=== PATIENT | female | born 1990 ===

== ENCOUNTER 2018-05-20 10:18 | Emergency (ER) | payer MEDICAID, OTHER ==
[2018-05-20 10:20] VITALS: RESP 18; TEMP 98.8; BMI 32.2
--- NOTE | 2018-05-20 13:52 | ED PDOC ---
HPI: Back Time Seen by Provider: 05/20/18 12:08 Chief Complaint (Nursing): Back Pain Chief Complaint (Provider): Lower back pain History Per: Patient History/Exam Limitations: no limitations Onset/Duration Of Symptoms: Hrs Current Symptoms Are (Timing): Still Present Quality Of Discomfort: "Pain" Previous Symptoms: Back Pain Associated Symptoms: None Exacerbating Factor(s): Turning, Movement Additional History Per: Patient Additional Complaint(s): 27yo female, otherwise well, comes to ER reporting low back pain after she lifted her daughter this morning. She reports she has been having low back pain after she received an epidural a couple years ago, but the episode today started after lifting her daughter. She reports taking Naproxen at 9am, and states the pain has been persistent; additionally states it worsens with movement. No weak ness, numbness, tingling, bowel/bladder dysfunction, or saddle anesthesia. No additional medical complaints. PMD: None Past Medical History Reviewed: Historical Data, Nursing Documentation, Vital Signs Vital Signs: Last Vital Signs Temp 98.8 F 05/20/18 10:20 Pulse 76 05/20/18 10:20 Resp 18 05/20/18 10:20 BP 121/73 05/20/18 10:20 Pulse Ox 99 05/20/18 10:20 - Medical History PMH: No Chronic Diseases Denies: Chronic Kidney Disease - Surgical History Surgical History: No Surg Hx - Family History Family History: States: No Known Family Hx, Unknown Family Hx - Living Arrangements Living Arrangements: With Family - Immunization History Hx Tetanus Toxoid Vaccination: No Hx Influenza Vaccination: No Hx Pneumococcal Vaccination: No - Home Medications Home Medications: Ambulatory Orders Medication Instructions Recorded Phentermine HCl 10/14/17 Sulfamethoxazole/Trimethoprim 1 tab PO BID #14 tab 10/14/17 [Bactrim DS 800 mg-160 mg] Cyclobenzaprine [Cyclobenzaprine 10 mg PO Q8 PRN 5 Days tab 05/20/18 HCl] Ibuprofen [Motrin Tab] 600 mg PO Q6 PRN 7 Days tab 05/20/18 - Allergies Allergies/Adverse Reactions: Allergies Allergy/AdvReac Type Severity Reaction Status Date / Time No Known Allergies Allergy Verified 05/20/18 10:24 Review of Systems Genitourinary Female: Negative for: Incontinence Musculoskeletal: Positive for: Back Pain Neurological: Negative for: Weakness, Numbness Physical Exam - Reviewed Nursing Documentation Reviewed: Yes Vital Signs Reviewed: Yes - Physical Exam Appears: Positive for: Non-toxic, No Acute Distress Skin: Positive for: Normal Color Eye Exam: Positive for: Normal appearance Neck: Positive for: Supple Cardiovascular/Chest: Positive for: Regular Rate, Rhythm Respiratory: Positive for: Normal Breath Sounds Pulses-Dorsalis Pedis (L): 2+ Pulses-Dorsalis Pedis (R): 2+ Back: Positive for: Decreased ROM (decreased ROM due to pain), Other (no midline or paralumbar tenderness noted). Negative for: L CVA Tenderness, R CVA Tenderness, Vertebral Tenderness Extremity: Positive for: Normal ROM (FROM bilateral knees; decreased ROM with flexion of bilateral hips due to pain), Capillary Refill (< 2 seconds). Negative for: Tenderness, Calf Tenderness, Deformity, Swelling Neurological/Psych: Positive for: Awake, Symmetric/Intact Strength (5/5 on bilateral lower extremities), Oriented (x 3), Gait (steady). Negative for: Motor/Sensory Deficits - ECG O2 Sat by Pulse Oximetry: 99 (RA) Pulse Ox Interpretation: Normal Medical Decision Making Medical Decision [place] female with acute back pain Plan: -- Toradol 15mg IM -- Flexeril 10mg PO -- CT Lumbar spine w/o contrast 1520 CT lumbar spine FINDINGS: VERTEBRAE: No acute compression fractures nor retropulsed fragments. Vertebral bodies exhibit normal stature. Vertebral bodies and facets normally aligned. DISCS/SPINAL CANAL/NEURAL FORAMINA: L1-2: Unremarkable. L2-3: Unremarkable. L3-4: Unremarkable. L4-5: Mild broad-based bulge of the posterior annulus results in some flattening of the ventral surface of the thecal sac however the overall central canal appears adequate. Disc bulging extends slightly into the proximal inferior margins of both exit foramina.. There is a L5-S1: . Small central and bilateral disc protrusion compresses the ventral surface of the thecal sac and reaches and may slightly posteriorly and laterally displaced the proximal traversing S1 nerve roots.. The disc also extends slightly into the proximal inferior margins of both exit foramina as well. PARASPINAL SOFT TISSUES: Unremarkable. OTHER FINDINGS: None. IMPRESSION: There is a small focal central disc protrusion L5-S1 level which compresses the ventral surface of the thecal sac and appears to minimally posterior laterally displaced the proximal traversing S1 nerve roots. There is also mild broad-based bulge of the posterior annulus at the L4-L5 level which minimally flattens the ventral surface of the thecal sac. Pt given results and advised to avoid heavy lifting for the next few days until her back feels better and to use proper lifting technique when she does. Patient ambulated with a steady gait and advised that it will take several days to improve. Stable for d/c home. Scribe Attestation: Documented by Caryn Paulino, acting as a scribe for [place]. Provider Scribe Attestation: All medical record entries made by the Scribe were at my direction and personally dictated by me. I have reviewed the chart and agree that the record accurately reflects my personal performance of the history, physical exam, medical decision making, and the department course for this patient. I have also personally directed, reviewed, and agree with the discharge instructions and disposition. Disposition - Clinical Impression Clinical Impression: Low back pain due to displacement of intervertebral disc - Patient ED Disposition Is Patient to be Admitted: No - Disposition [facility]errals: [facility] [Outside] Disposition: Routine/Home Disposition Time: 15:48 Condition: STABLE Additional Instructions: Follow up with primary care doctor for further treatment. Take Flexeril as needed but avoid taking if you need to drive or operate heavy machinery as it can make you sleepy. Take Ibuprofen regularly for the next few days. See physical therapist if possible. Return to ER if you are unable to hold your urine or if you have leg weakness. Avoid excessive activity until pain improves but do not stay laying down. Prescriptions: Cyclobenzaprine [Cyclobenzaprine HCl] 10 mg PO Q8 PRN 5 Days tab PRN Reason: Muscle Spasm Ibuprofen [Motrin Tab] 600 mg PO Q6 PRN 7 Days tab PRN Reason: Pain, Moderate (4-7) Instructions: Low Back Pain (DC) Forms: [employer] (Uzbek) Print Language: [place]
--- NOTE | 2018-05-20 14:56 | CT ---
Date of service: 05/20/2018 PROCEDURE: CT Lumbar Spine without contrast HISTORY: Acute low back pain COMPARISON: None available. TECHNIQUE: Axial computed tomography images were obtained of the lumbar spine without the use of intravenous contrast. Coronal and sagittal reformatted images were created and reviewed. Radiation dose: Total exam DLP = 643.93 mGy-cm. This CT exam was performed using one or more of the following dose reduction techniques: Automated exposure control, adjustment of the mA and/or kV according to patient size, and/or use of iterative reconstruction technique. FINDINGS: VERTEBRAE: No acute compression fractures nor retropulsed fragments. Vertebral bodies exhibit normal stature. Vertebral bodies and facets normally aligned. DISCS/SPINAL CANAL/NEURAL FORAMINA: L1-2: Unremarkable. L2-3: Unremarkable. L3-4: Unremarkable. L4-5: Mild broad-based bulge of the posterior annulus results in some flattening of the ventral surface of the thecal sac however the overall central canal appears adequate. Disc bulging extends slightly into the proximal inferior margins of both exit foramina.. There is a L5-S1: . Small central and bilateral disc protrusion compresses the ventral surface of the thecal sac and reaches and may slightly posteriorly and laterally displaced the proximal traversing S1 nerve roots.. The disc also extends slightly into the proximal inferior margins of both exit foramina as well. PARASPINAL SOFT TISSUES: Unremarkable. OTHER FINDINGS: None. IMPRESSION: There is a small focal central disc protrusion L5-S1 level which compresses the ventral surface of the thecal sac and appears to minimally posterior laterally displaced the proximal traversing S1 nerve roots. There is also mild broad-based bulge of the posterior annulus at the L4-L5 level which minimally flattens the ventral surface of the thecal sac.
[2018-05-20 15:48] VITALS: BP 117/80; PULSE 69
[2018-05-20 23:34] VITALS: O2SAT 99
== END 2018-05-20 15:48 | disposition home or self-care (01) ==
LOC: H.ER 10:18
DX: M54.5 Low back pain (principal); M51.26 Other intervertebral disc displacement, lumbar region; M51.27 Other intervertebral disc displacement, lumbosacral region
CPT/HCPCS: 72131; 81025; 96372; 99283; J1885